=== PATIENT | male | born 1985 | race Caucasian/White ===

== ENCOUNTER 2017-09-16 08:28 | Day surgery (SDC) | END 2017-09-16 13:10 | disposition home or self-care (01) ==

== ENCOUNTER 2018-04-27 08:12 | Day surgery (SDC) | payer OTHER ==
[~2018-04-27] VITALS: Ht 160 cm; Wt 90.2 kg
[~2018-04-27 08:12] MED LIST: IBUPROFEN; OMEPRAZOLE
[2018-04-27] MEDS ORDERED: NORCO (09:21)
[2018-04-27] MEDS ORDERED: DEPRESSION MED (09:21)
[2018-04-27] MEDS ORDERED: TYLENOL (09:21)
--- NOTE | 2018-04-27 09:29 | PREAC ---
Date/Time of Note Date/Time of Note DATE: 04/27/18 TIME: 09:26 Anesthesia Eval and Record Evaluation Time Pre-Procedure Interview DATE: 04/27/18 TIME: 09:26 Age 32 Sex male NPO: 8 hrs Preoperative diagnosis Rectal bleeding Planned procedure Colonoscopy Past Medical History Past Medical History: Includes Cardio: HTN, Dyslipidemia Pulm: Sleep Apnea GI: Morbid obesity Surgery & Anesthesia Issues No known issue Meds Anticoagulation: Yes Beta Luis Manuel within 24 hr: No Reason Beta Luis Manuel not given: Pt. not on B-Luis Manuel Reported Medications [[place]] No Conflict Check 04/27/18 [Depression Med] No Conflict Check 04/27/18 [Tylenol] No Conflict Check 04/27/18 [Ibuprofen] No Conflict Check 09/16/17 Discontinued Reported Medications [Omeprazole] No Conflict Check 09/16/17 Meds reviewed: Yes Allergies Coded Allergies: No Known Allergy (Unverified , 04/27/18) Allergies Reviewed: Yes Labs/Studies Labs Reviewed: Reviewed by anesthesiologist test: N/A Studies: ECG Pre-procedure Exam Last vitals BP:128/67, pulse:78, spo2:100%, T:98,8 Airway: Adequate mouth opening, Adequate thyromental dist Mallampati: Mallampati III Teeth: Normal Lung: Normal Heart: Normal ASA Physical Status ASA physical status: 3 Emergency: None Planned Anesthetic General/MAC: MAC Pre-operative Attestations Prior to commencing anesthesia and surgery, the patient was re-evaluated, there was verification of: *The patient's identity *The results of appropriate recent lab work and preoperative vital signs *The above evaluation not changing prior to induction *Anesthetic plan, risk benefits, alternative and complications discussed with patient/family; questions answered; patient/family understands, accepts and wishes to proceed. ABHI BOOTH MD Apr 27, 2018 09:29
[2018-04-27] MEDS ORDERED: PROPOFOL 60 ML ONE (09:30)
[2018-04-27] MEDS ORDERED: LIDOCAINE 2% (SDV) 5 ML INJ ONE (09:30)
[2018-04-27 09:41] VITALS: BP 121/81; PULSE 96; RESP 20
[2018-04-27 09:44] VITALS: Ht 160 cm; Wt 90.2 kg
--- NOTE | 2018-04-27 10:09 | PAC ---
Date/Time of Note Date/Time of Note DATE: 04/27/18 TIME: 10:09 Post-Anesthesia Notes Post-Anesthesia Note Last documented vital signs Vital Signs Date Temp Pulse Resp B/P (MAP) Pulse Ox O2 O2 Flow FiO2 Time Delivery Rate 04/27/18 98.5 96 20 121/81 97 Room Air 09:41 (94) Activity: WNL Respiratory function: WNL Cardiovascular function: WNL Mental status: Baseline Pain reasonably controlled: Yes Hydration appropriate: Yes Nausea/Vomiting absent: Yes Comments BP:136/67, pulse:78, spo2:100%, T:98,8 ABHI BOOTH MD Apr 27, 2018 10:09
[2018-04-27 10:30] VITALS: BP 132/80; PULSE 90; RESP 18
[2018-04-27] MEDS ORDERED: MEPERIDINE 25 MG INJ IV PRN (10:30)
[2018-04-27] MEDS ORDERED: ONDANSETRON 4 MG INJ IV PRN (10:30)
[2018-04-27] MEDS ORDERED: DIPHENHYDRAMINE 50 MG INJ IV PRN (10:30)
[2018-04-27] MEDS ORDERED: FENTAnyl 50 MCG/ML VIAL IV PRN (10:30)
== END 2018-04-27 14:49 | disposition home or self-care (01) ==
LOC: GIL 08:12
PROVIDERS: ATTEND Internal Medicine Gastroenterology
DX: K92.1 Melena (principal); K64.8 Other hemorrhoids
CPT/HCPCS: 45378; Z7610

== ENCOUNTER 2018-06-26 21:58 | Emergency (ER) | payer OTHER ==
[~2018-06-26] VITALS: Ht 160 cm; Wt 89.0 kg
[~2018-06-26 21:58] MED LIST changes: +DEPRESSION MED; +NORCO; -OMEPRAZOLE; +TYLENOL
[2018-06-26 22:03] VITALS: Ht 160 cm; Wt 89.0 kg
[2018-06-26] MEDS ORDERED: CEFEPIME 2GM/50 ML (PMX) 50 ML IVPB STA (22:05)
[2018-06-26] MEDS ORDERED: VANCOMYCIN 1 GM (PMX) 250 ML IVPB ONE (22:30)
[2018-06-26] MEDS ORDERED: SOD CHLORIDE 0.9% IV ONE (22:30)
[2018-06-26] MEDS ORDERED: KETOROLAC 30 MG INJ IV STA (23:00)
[2018-06-26] MEDS ORDERED: ACETAMINOPHEN 500 MG TAB PO STA (23:00)
[2018-06-27] MEDS ORDERED: MED4DP PO (00:45)
[2018-06-27] MEDS ORDERED: ALBU18HF INHALATION (00:45)
[2018-06-27] MEDS ORDERED: IBUP-1542 PO (00:45)
--- NOTE | 2018-06-27 00:51 | ERD ---
ER Documentation Chief Complaint Chief Complaint [id number]; HEADACHE WITH COUGH AND DIZZINESS X1DAY HPI This is a 32-year-old male comes in with points of headache cough and body aches for the past 2 days getting progressively worse. He was brought in by rescue and sent to triage as there were no rooms available. In triage she flat for sepsis. Code sepsis was called immediately. Sepsis protocol was initiated with antibiotics and fluids. Patient states that his been having these body aches fevers and chills for 2 days. No sick contacts. No other current issues ROS All systems reviewed and are negative except as per history of present illness. Medications Home Meds Active Scripts Albuterol Sulfate* (Ventolin HFA*) 18 Gm Hfa.aer.ad, 2 PUFF INHALATION Q4H, #1 INHALER Prov:YUSUF SHEN 06/27/18 Ibuprofen* (Motrin*) 600 Mg Tab, 600 MG PO Q6H PRN for PAIN AND OR ELEVATED TEMP, #30 TAB Prov:YUSUF SHEN 06/27/18 Methylprednisolone* (Medrol* DOSE PACK) 4 Mg/Dose-Pack Tab.ds.pk, 4 MG PO . DIRECTED for 7 Days, PACKET Prov:YUSUF SHEN Makayla. 06/27/18 Reported Medications [[place]] No Conflict Check 04/27/18 [Depression Med] No Conflict Check 04/27/18 [Tylenol] No Conflict Check 04/27/18 [Ibuprofen] No Conflict Check 09/16/17 Allergies Allergies: Coded Allergies: No Known Allergy (Unverified , 04/27/18) PMhx/Soc History of Surgery: No Anesthesia Reaction: No Hx Neurological Disorder: No Hx Respiratory Disorders: Yes (COUGHING,SLEEP APNEA) Hx Cardiac Disorders: Yes (HIGH BLOOD PRESSURE) Hx Psychiatric Problems: Yes (DEPRESSION) Hx Miscellaneous Medical Probl: No Hx Alcohol Use: No Hx Substance Use: No Hx Tobacco Use: No Physical Exam Vitals Vital Signs Date Temp Pulse Resp B/P (MAP) Pulse Ox O2 O2 Flow FiO2 Time Delivery Rate 06/26/18 99.5 23:54 06/26/18 102.8 96 20 123/89 96 Room Air 23:02 (100) 06/26/18 103.5 128 18 134/82 96 22:03 (99) Physical Exam Const: No acute distress Head: Atraumatic Eyes: Normal Conjunctiva ENT: Normal External Ears, Nose and Mouth. Neck: Full range of motion. No meningismus. Resp: Clear to auscultation bilaterally Cardio: Regular rate and rhythm, no murmurs Abd: Soft, non tender, non distended. Normal bowel sounds Skin: No petechiae or rashes Back: No midline or flank tenderness Ext: No cyanosis, or edema Neur: Awake and alert Psych: Normal Mood and Affect Result Diagram: 06/26/18222206/26/182222 Results 24 hrs Laboratory Tests Test 06/26/18 22:15 06/26/18 22:23 06/26/18 22:30 Urine Color YELLOW Urine Clarity CLEAR Urine pH 5.0 Urine Specific [place] 1.020 Urine Ketones NEGATIVE mg/dL Urine Nitrite NEGATIVE mg/dL Urine Bilirubin NEGATIVE mg/dL Urine Urobilinogen NEGATIVE mg/dL Urine Leukocyte Esterase NEGATIVE Hermes/ul Urine Microscopic RBC 3 /HPF Urine Microscopic WBC 3 /HPF Urine Calcium Oxalate Crystals FEW /HPF Urine Bacteria FEW /HPF Urine Hemoglobin 1+ mg/dL Urine Glucose NEGATIVE mg/dL Urine Total Protein 2+ mg/dl White Blood Count 8.9 10^3/ul Red Blood Count 5.86 10^6/ul Hemoglobin 16.5 g/dl Hematocrit 48.7 % Mean Corpuscular Volume 83.1 fl Mean Corpuscular Hemoglobin 28.2 pg Mean Corpuscular 33.9 g/dl Hemoglobin Concent Red Cell Distribution Width 12.8 % Platelet Count 233 10^3/UL Mean Platelet Volume 9.2 fl Immature Granulocytes % 0.500 % Neutrophils % 73.6 % Lymphocytes % 14.9 % Monocytes % 9.7 % Eosinophils % 0.3 % Basophils % 1.0 % Nucleated Red Blood Cells % 0.0 /100WBC Immature Granulocytes # 0.040 10^3/ul Neutrophils # 6.5 10^3/ul Lymphocytes # 1.3 10^3/ul Monocytes # 0.9 10^3/ul Eosinophils # 0.0 10^3/ul Basophils # 0.1 10^3/ul Nucleated Red Blood Cells # 0.0 10^3/ul Prothrombin Time 13.2 Sec Prothrombin Time Ratio 1.0 INR International 0.99 Normalized Ratio Activated Partial Thromboplast 27.4 Sec Time Sodium Level 140 mmol/L Potassium Level 4.0 mmol/L Chloride Level 98 mmol/L Carbon Dioxide Level 27 mmol/L Anion Gap 15 Blood Urea Nitrogen 16 mg/dl Creatinine 1.24 mg/dl Est Glomerular Filtrat > 60 mL/min Rate mL/min Glucose Level 135 mg/dl Calcium Level 10.1 mg/dl Total Bilirubin 0.4 mg/dl Direct Bilirubin 0.00 mg/dl Indirect Bilirubin 0.4 mg/dl Aspartate Amino 57 IU/L Transf (AST/SGOT) Alanine 104 IU/L Aminotransferase (ALT/SGPT) Alkaline Phosphatase 84 IU/L Troponin I < 0.012 ng/ml Total Protein 8.0 g/dl Albumin 5.0 g/dl Globulin 3.00 g/dl Albumin/Globulin Ratio 1.66 POC Venous Lactate 2.0 mmol/L Current Medications Medications Dose Sig/Cierra Start Time Status Last (Trade) Ordered Route PRN Stop Time Admin Dose Reason Admin Cefepime HCl 50 ml @ ONCE STAT 06/26/18 DC 06/26/18 100 mls/hr IVPB 22:05 22:47 06/26/18 22:34 Vancomycin 250 ml @ ONCE ONCE 06/26/18 DC 06/26/18 HCl 125 mls/hr IVPB 22:30 23:28 06/27/18 00:29 Sodium 2,670 ml @ BOLUS X1 06/26/18 DC 06/26/18 Chloride 2,670 mls/hr ONCE IV 22:30 22:37 06/26/18 23:29 Ketorolac 30 mg ONCE STAT 06/26/18 DC 06/26/18 Tromethamine IV 23:00 23:53 (Toradol) 06/26/18 23:01 1,000 mg ONCE STAT 06/26/18 DC 06/26/18 Acetaminophen PO 23:00 23:54 (Tylenol 06/26/18 23:01 Tab) Procedures/MDM Emergency department course: Patient seen about by triage was placed in bed for MD evaluation. Code sepsis called from triage. Fluids and septic protocol started. Code sepsis canceled. Patient given Toradol for body aches. Given Tylenol for fever. Serial examination was stable and showed global improvement Diagnostic data: Lactic acid 2.0 before fluids EKG: Rate/Rhythm: Regular rhythm, tachycardic rate QRS, ST, T-waves: [No changes consistent w/ acute ischemia] Impression: Sinus tachycardia Chest X-ray 1V Interpreted by me: Soft Tissue: No acute abnormalities Bones: No acute abnormalities Mediastinum/Cardiac Silhouette/Lungs: [No acute abnormalities] Medical decision making: This very pleasant 32-year-old male comes in with a history of viral syndrome. At this point is been ruled out for sepsis and is stable for trial of outpatient management as he feels better. Patient be discharged home Medrol Dosepak, Motrin, albuterol. He is to follow-up with his primary care physician. Return for worsening symptoms. Otherwise to follow-up with PCP tomorrow Departure Diagnosis: Primary Impression: Viral syndrome Condition: Fair Patient Instructions: Viral Syndrome (Adult) YUSUF SHEN Jun 27, 2018 00:51
[2018-06-27 00:53] VITALS: BP 133/76; PULSE 86; RESP 16
== END 2018-06-27 01:23 | disposition home or self-care (01) ==
LOC: E/R 21:58
DX: B34.9 Viral infection, unspecified (principal); R50.9 Fever, unspecified
CPT/HCPCS: 36415; 71045; 80053; 81001; 83605; 84484; 85025; 85610; 85730; 87040; 87086; 87400; 93005; 96365; 96375; J0692; J1885; J3370; J7030; Z7502; Z7610

== ENCOUNTER 2018-07-18 19:33 | Emergency (ER) | payer OTHER ==
[~2018-07-18] VITALS: Ht 167.6 cm; Wt 89.8 kg
[~2018-07-18 19:33] MED LIST changes: +ALBU18HF INHALATION; +IBUP-1542 PO; +MED4DP PO
[2018-07-18 19:39] VITALS: Ht 167.6 cm; Wt 89.8 kg
[2018-07-18] MEDS ORDERED: KETOROLAC 30 MG INJ IV STA (22:09)
[2018-07-18] MEDS ORDERED: ONDANSETRON 4 MG INJ IV STA (22:09)
--- NOTE | 2018-07-18 22:23 | ERD ---
ER Documentation Chief Complaint Chief Complaint LQ abd pain since yesterday. +vomiting. hx kidney stones HPI Patient is a 32-year-old male brought in by parents with a past medical history of hypertension, sleep apnea, nephrolithiasis, who presents the ER for concerns of left-sided abdominal pain that started yesterday. Patient describes the pain to be localized to his flank region and radiating to his left lower quadrant. Patient states the pain comes and goes. He describes the pain to be colicky. Patient does admit to one episode of nonbloody, nonbilious vomiting. Patient does admit to dysuria however he denies any gross hematuria. Patient denies any loose stools, diarrhea or rectal bleeding. Patient denies any fevers or chills. Patient denies any recent travel. No recent antibiotic use. No sick contacts. Patient denies any chest pain, shortness of breath, upper abdominal pain. ROS All systems reviewed and are negative except as per history of present illness. Medications Home Meds Active Scripts Albuterol Sulfate* (Ventolin HFA*) 18 Gm Hfa.aer.ad, 2 PUFF INHALATION Q4H, #1 INHALER Prov:YUSUF SHEN 06/27/18 Ibuprofen* (Motrin*) 600 Mg Tab, 600 MG PO Q6H PRN for PAIN AND OR ELEVATED TEMP, #30 TAB Prov:YUSUF SHEN 06/27/18 Methylprednisolone* (Medrol* DOSE PACK) 4 Mg/Dose-Pack Tab.ds.pk, 4 MG PO . DIRECTED for 7 Days, PACKET Prov:YUSUF SHEN 06/27/18 Reported Medications [[place]] No Conflict Check 04/27/18 [Depression Med] No Conflict Check 04/27/18 [Tylenol] No Conflict Check 04/27/18 [Ibuprofen] No Conflict Check 09/16/17 Allergies Allergies: Coded Allergies: No Known Allergy (Unverified , 07/18/18) PMhx/Soc History of Surgery: No Anesthesia Reaction: No Hx Neurological Disorder: No Hx Respiratory Disorders: Yes (COUGHING,SLEEP APNEA) Hx Cardiac Disorders: Yes (HIGH BLOOD PRESSURE) Hx Psychiatric Problems: Yes (DEPRESSION) Hx Miscellaneous Medical Probl: No Hx Alcohol Use: No Hx Substance Use: No Hx Tobacco Use: No Smoking Status: Never smoker FmHx Family History: No diabetes Physical Exam Vitals Vital Signs Date Temp Pulse Resp B/P (MAP) Pulse Ox O2 O2 Flow FiO2 Time Delivery Rate 07/18/18 99.0 77 20 133/91 96 19:39 (105) Physical Exam GENERAL: Well-developed, well-nourished male Appears in no acute distress. HEAD: Normocephalic, atraumatic. EYES: Pupils are equally reactive bilaterally. EOMs grossly intact. No conjunctival erythema. ENT: Moist mucous membranes. No uvula deviation. No kissing tonsils. NECK: Supple. No meningismus. Normal range of motion of the neck. LUNG: Clear to auscultation bilaterally. No rhonchi, wheezing, rales or coarse breath sounds. HEART: Regular rate and rhythm. No murmurs, rubs or gallops. ABDOMEN:Soft, and nondistended. Minimally tender to palpation in the left lower quadrant. Positive bowel sounds in all four quadrants. No rebound tenderness, no guarding. (-) McBurney's point tenderness. + Left CVA tenderness. BACK: No midline tenderness. EXTREMITIES: Equal pulses bilaterally. No peripheral clubbing, cyanosis or venice a. No unilateral leg swelling. NEUROLOGIC: Alert and oriented. Moving all four extremities without any difficulty. Normal speech. Steady gait. SKIN: Normal color. Warm and dry. No rashes or lesions. Result Diagram: 07/18/18222707/18/182227 Results 24 hrs Laboratory Tests Test 07/18/18 22:15 07/18/18 22:22 07/18/18 22:28 Urine Color YELLOW Urine Clarity SLIGHTLY CLOUDY Urine pH 5.0 Urine Specific [place] 1.026 Urine Ketones NEGATIVE mg/dL Urine Nitrite NEGATIVE mg/dL Urine Bilirubin NEGATIVE mg/dL Urine Urobilinogen NEGATIVE mg/dL Urine Leukocyte Esterase TRACE Hermes/ul Urine Microscopic RBC 172 /HPF Urine Microscopic WBC 15 /HPF Urine Calcium Oxalate Crystals FEW /HPF Urine Mucus FEW /HPF Urine Hemoglobin 3+ mg/dL Urine Glucose NEGATIVE mg/dL Urine Total Protein 2+ mg/dl POC Beta HCG, Qualitative NEGATIVE White Blood Count 9.3 10^3/ul Red Blood Count 5.39 10^6/ul Hemoglobin 15.0 g/dl Hematocrit 45.2 % Mean Corpuscular Volume 83.9 fl Mean Corpuscular Hemoglobin 27.8 pg Mean Corpuscular 33.2 g/dl Hemoglobin Concent Red Cell Distribution Width 12.8 % Platelet Count 247 10^3/UL Mean Platelet Volume 9.7 fl Immature Granulocytes % 0.400 % Neutrophils % 46.5 % Lymphocytes % 40.8 % Monocytes % 8.6 % Eosinophils % 2.6 % Basophils % 1.1 % Nucleated Red Blood Cells % 0.0 /100WBC Immature Granulocytes # 0.040 10^3/ul Neutrophils # 4.3 10^3/ul Lymphocytes # 3.8 10^3/ul Monocytes # 0.8 10^3/ul Eosinophils # 0.2 10^3/ul Basophils # 0.1 10^3/ul Nucleated Red Blood Cells # 0.0 10^3/ul Sodium Level 145 mmol/L Potassium Level 4.3 mmol/L Chloride Level 101 mmol/L Carbon Dioxide Level 32 mmol/L Anion Gap 12 Blood Urea Nitrogen 18 mg/dl Creatinine 1.24 mg/dl Est Glomerular Filtrat > 60 mL/min Rate mL/min Glucose Level 90 mg/dl Calcium Level 10.3 mg/dl Total Bilirubin 0.2 mg/dl Direct Bilirubin 0.00 mg/dl Indirect Bilirubin 0.2 mg/dl Aspartate Amino Transf (AST/SGOT) 49 IU/L Alanine 94 IU/L Aminotransferase (ALT/SGPT) Alkaline Phosphatase 70 IU/L Total Protein 7.4 g/dl Albumin 4.6 g/dl Globulin 2.80 g/dl Albumin/Globulin Ratio 1.64 Lipase 136 U/L Current Medications Medications Dose Sig/Cierra Start Time Status Last (Trade) Ordered Route PRN Stop Time Admin Dose Reason Admin Ondansetron 4 mg ONCE STAT 07/18/18 DC 07/18/18 HCl (Zofran IV 22:09 07/18/18 22:34 Inj) 22:11 Ketorolac 30 mg ONCE STAT 07/18/18 DC 07/18/18 Tromethamine IV 22:09 07/18/18 22:34 (Toradol) 22:11 Sodium 1,000 ml @ Q1H ONCE 07/19/18 Chloride 1,000 mls/hr IV 00:30 07/19/18 01:29 Procedures/MDM ED COURSE: The patient was stable throughout ED course. I kept the patient and/or family informed of laboratory and diagnostic imaging results throughout the ED course. DIAGNOSTIC IMAGING: Read by radiologist. Patient: MARY JO LENZ : 1985 Age: 32 Sex: M MR #: [id number] DOS: 07/18/182208 Ordering MD: REKHA KRAMER PA-C Location: [facility] Room/Bed: PROCEDURE: CT ABDOMEN AND PELVIS WITHOUT CONTRAST CLINICAL INDICATION: 32 years of age, male . Abdominal pain. TECHNIQUE: CT of the abdomen and pelvis was performed without intravenous c ontrast. Oral contrast was not administered prior to the examination. Coronal and sagittal reformatted images were obtained from the axial source images. Images were reviewed on a high-resolution PACS workstation. DICOM images are available. Dose information: Based on a 32 cm phantom, the estimated radiation dose (CTDIvol mGy) for each series in this exam is 15. The estimated cumulative dose (DLP mGy-cm) is 1004. One or more of the following dose reduction techniques were used: - Automated exposure control. - Adjustment of the mA and/or kV according to patient size. - Use of iterative reconstruction technique. COMPARISON: None available. FINDINGS: In the absence of intravenous contrast, the study constitutes a limited assessment of the solid organs, bowel and vessels. LUNG BASES: Normal noncontrast appearance. ABDOMEN/PELVIS: Liver: Diffusely hypodense in keeping with mild steatosis with focal sparing centrally. Mildly enlarged and liver measures 19.5 cm in length. Smooth surface contour. Gallbladder: Normal noncontrast appearance. Bile ducts: No intrahepatic or extrahepatic biliary duct dilatation. Spleen: Normal noncontrast appearance. Pancreas: Normal noncontrast appearance. Adrenal glands: Normal noncontrast appearance. Kidneys and ureters: There is a 1 x 1.5 cm obstructing calculus in the left renal pelvis with mild left hydronephrosis and edema in the fat surrounding the renal pelvis and proximal ureter. No other calculi are identified. Both kidneys are normal size. Negative for right hydronephrosis. Aorta and IVC: Normal noncontrast appearance. Lymph nodes: Normal noncontrast appearance. Gastrointestinal tract: Normal noncontrast appearance. Appendix: Normal Bladder: Normal noncontrast appearance. Pelvic Organs: Prostate gland and seminal vesicles are unremarkable for age. Peritoneal cavity: No free fluid or free intraperitoneal air. Abdominal wall: Normal noncontrast appearance. MUSCULOSKELETAL: Bones: Thoracolumbar scoliosis with mild degenerative changes in the lumbar spine where there is a curvature convex left. No suspicious bone lesions. IMPRESSION: 1. 1 x 1.5 cm partially obstructing calculus in the left renal pelvis with mild left hydronephrosis. There is edema in the peripelvic and periureteral fat. Recommend clinical correlation for evidence of a urinary tract infection and possible pyelitis. 2. Mild hepatic steatosis and mild hepatomegaly. Recommend correlation with liver tests to evaluate for potential steatohepatitis. 3. Please note that in the absence of intravenous contrast the study does not evaluate the patency of the vasculature. RPTAT: HCTS Physician Katelyn Date Time Electronically viewed and signed by Ethel Dawn Physician on 07/18/2018 23:38 CS/ CC: REKHA KRAMER PA-C [id number] PROCEDURES: None. MEDICATIONS GIVEN: IV fluids, Zofran, Toradol Patient tolerated medication well with no adverse reactions. Patient reported improvement in pain. MEDICAL DECISION MAKING: This is a 32-year-old male with past medical history of hypertension, sleep apnea, nephrolithiasis, who presents to the ER for concerns of left-sided flank pain which started yesterday. Vital signs were reviewed. Patient was afebrile. Patient was not hypoxic. IV line was established. Blood work was obtained. CBC showed no evidence of systemic infection or severe anemia. CMP showed no evidence of electrolyte abnormalities, severe acidosis, alkalosis, renal failure. AST was noted to be 49, ALT of 94. Lipase showed no evidence of acute pancreatitis. UA showed trace leukocyte esterase, positive WBCs and RBCs. Few calcium oxalate crystals were noted. CT abdomen and pelvis showed 1. 1 x 1.5 cm partially obstructing calculus in the left renal pelvis with mild left hydronephrosis. There is edema in the peripelvic and periureteral fat. Recommend clinical correlation for evidence of a urinary tract infection and possible pyelitis. 2. Mild hepatic steatosis and mild hepatomegaly. Recommend correlation with liver tests to evaluate for potential steatohepatitis. 3. Please note that in the absence of intravenous contrast the study does not evaluate the patency of the vasculature. At this time, patient's presentation is most consistent with nephrolithiasis. Patient did report improvement in pain prior to discharge. Low suspicion for pyelonephritis, appendicitis, diverticulitis, constipation, urethritis, prostati tis, epididymitis, testicular torsion, acute renal injury. Patient was advised to follow-up with urologist. Referral information provided. PRESCRIPTIONS: Ibuprofen, Zofran, tamsulosin DISCHARGE: At this time, patient is stable for discharge and outpatient management. I have instructed the patient to follow-up with his/her primary care physician in 1-2 days. If symptoms persist, patient may need to see a specialist for further examinations and testing. I have instructed the patient to promptly return to the ER at any time for any new or worsening symptoms including increased increased pain, fever, nausea, vomiting, urinary changes or weakness. The patient and/or family expressed understanding of and agreement with this plan. All questions were answered. Home care instructions were provided. Disclaimer: Inadvertent spelling and grammatical errors are likely due to EHR/dictation software use and do not reflect on the overall quality of patient care. Also, please note that the electronic time recorded on this note does not necessarily reflect the actual time of the patient encounter. Departure Diagnosis: Primary Impression: Nephrolithiasis Additional Impression: Urinary tract infection Urinary tract infection type: site unspecified Hematuria presence: with hematuria Qualified Codes: N39.0 - Urinary tract infection, site not specified; R31.9 - Hematuria, unspecified Condition: Fair Patient Instructions: Kidney Stone W/ Colic Referrals: ANTHONY GUZMAN MD [facility] YOU HAVE RECEIVED A MEDICAL SCREENING EXAM AND THE RESULTS INDICATE THAT YOU DO NOT HAVE A CONDITION THAT REQUIRES URGENT TREATMENT IN THE EMERGENCY DEPARTMENT. FURTHER EVALUATION AND TREATMENT OF YOUR CONDITION CAN WAIT UNTIL YOU ARE SEEN IN YOUR DOCTORS OFFICE WITHIN THE NEXT 1-2 DAYS. IT IS YOUR RESPONSIBILITY TO MAKE AN APPOINTMENT FOR FOLOW-UP CARE. IF YOU HAVE A PRIMARY DOCTOR --you should call your primary doctor and schedule an appointment IF YOU DO NOT HAVE A PRIMARY DOCTOR YOU CAN CALL OUR PHYSICIAN REFERRAL HOTLINE AT IF YOU CAN NOT AFFORD TO SEE A PHYSICIAN YOU CAN CHOSE FROM THE FOLLOWING [facility] [address] [facility] [facility] [address] [facility] [address] [facility] [address] [facility] [address] [facility]. [facility]. [address] [facility]. [facility] YOU HAVE RECEIVED A MEDICAL SCREENING EXAM AND THE RESULTS INDICATE THAT YOU DO NOT HAVE A CONDITION THAT REQUIRES URGENT TREATMENT IN THE EMERGENCY DEPARTMENT. FURTHER EVALUATION AND TREATMENT OF YOUR CONDITION CAN WAIT UNTIL YOU ARE SEEN IN YOUR DOCTORS OFFICE WITHIN THE NEXT 1-2 DAYS. IT IS YOUR RESPONSIBILITY TO MAKE AN APPOINTMENT FOR FOLOW-UP CARE. IF YOU HAVE A PRIMARY DOCTOR --you should call your primary doctor and schedule and appointment IF YOU DO NOT HAVE A PRIMARY DOCTOR YOU CAN CALL OUR PHYSICIAN REFERRAL HOTLINE AT . IF YOU CAN NOT AFFORD TO SEE A PHYSICIAN YOU CAN CHOSE FROM THE FOLLOWING [facility] INSTITUTIONS: [facility] [address] [place] [address] [facility] [address] [place] [address] [facility] [address] [place] [address] Additional Instructions: Call your primary care doctor TOMORROW for an appointment during the next 1-2 days.See the doctor sooner or return here if your condition worsens before your appointment time. REKHA KRAMER PA-C Jul 18, 2018 22:23
[2018-07-19] MEDS ORDERED: IBUP-1542 PO (00:18)
[2018-07-19] MEDS ORDERED: TAMS-14 PO (00:19)
[2018-07-19] MEDS ORDERED: ONDA4TAB14 PO (00:19)
[2018-07-19] MEDS ORDERED: SOD CHLORIDE 0.9% 1,000 ML IV ONE (00:30)
[2018-07-19 01:05] VITALS: BP 125/77; PULSE 84; RESP 18
== END 2018-07-19 01:15 | disposition home or self-care (01) ==
LOC: FTE 19:33
DX: N20.0 Calculus of kidney (principal); N39.0 Urinary tract infection, site not specified; I10 Essential (primary) hypertension
CPT/HCPCS: 36415; 74176; 80053; 81001; 81025; 83690; 85025; 87086; 96361; 96374; 96375; J1885; J2405; J7030; Z7502

== ENCOUNTER 2018-08-13 20:46 | Emergency (ER) | payer OTHER ==
[~2018-08-13] VITALS: Wt 88.0 kg
[~2018-08-13 20:46] MED LIST changes: +ONDA4TAB14 PO; +TAMS-14 PO
[2018-08-13 21:06] VITALS: BP 130/83; PULSE 89; RESP 18
[2018-08-13] MEDS ORDERED: IBUP-1561 PO (23:18)
[2018-08-13] MEDS ORDERED: ACET-141 PO (23:18)
[2018-08-13] MEDS ORDERED: HYDR-3980 PO (23:18)
[2018-08-13] MEDS ORDERED: TAMS-14 PO (23:23)
--- NOTE | 2018-08-13 23:26 | ERD ---
ER Documentation Chief Complaint Chief Complaint left abdominal pain x 1 day HPI 32-year-old male presents for left groin pain x1 day. He had a left ureter stent placed at [facility] for kidney stones about 5 days ago.he was discharged with some [place], Augmentin. He states that the pain was initially at the left flank and now is at the left groin. He has been taking the [place] with mild relief. Denies fevers or chills. Denies chest pain or shortness of breath. No nausea or vomiting noted. He is eating and drinking normally. No other modifying factors noted. No other treatments tried at home. ROS All systems reviewed and are negative except as per history of present illness. Medications Home Meds Active Scripts Tamsulosin Hcl* (Flomax*) 0.4 Mg Cap.er.24h, 0.4 MG PO DAILY for kidney stone for 7 Days, #7 CAP Prov:LUZ ESCALANTE DO 08/13/18 Acetaminophen* (Acetaminophen*) 500 MG Extra Strength Tablet, 500 MG PO Q4H PRN for PAIN AND OR ELEVATED TEMP, #30 TAB Prov:LUZ ESCALANTE DO 08/13/18 Ibuprofen* (Motrin*) 400 Mg Tab, 400 MG PO Q6, #30 TAB Prov:LUZ ESCALANTE DO 08/13/18 Hydrocodone/Acetaminophen ([place] 10-325 Tablet) 1 Each Tablet, 1 TAB PO Q6H PRN for PAIN, #5 TAB Prov:BORISLUZ 08/13/18 Tamsulosin Hcl* (Flomax*) 0.4 Mg Cap.er.24h, 0.4 MG PO QPM, #10 CAP Prov:REKHA KARMER PA-C 07/19/18 Ondansetron (Ondansetron Odt) 4 Mg Tab.rapdis, 4 MG PO Q6H PRN for NAUSEA AND/OR VOMITING, #10 TAB Prov:REKHA KRAMER PA-C 07/19/18 Ibuprofen* (Motrin*) 600 Mg Tab, 600 MG PO Q6, #30 TAB Prov:REKHA KRAMER PA-C 07/19/18 Albuterol Sulfate* (Ventolin HFA*) 18 Gm Hfa.aer.ad, 2 PUFF INHALATION Q4H, #1 INHALER Prov:YUSUF SHEN 06/27/18 Ibuprofen* (Motrin*) 600 Mg Tab, 600 MG PO Q6H PRN for PAIN AND OR ELEVATED TEMP, #30 TAB Prov:YUSUF SHEN 06/27/18 Methylprednisolone* (Medrol* DOSE PACK) 4 Mg/Dose-Pack Tab.ds.pk, 4 MG PO . DIRECTED for 7 Days, PACKET Prov:YUSUF SHEN 06/27/18 Reported Medications [[place]] No Conflict Check 04/27/18 [Depression Med] No Conflict Check 04/27/18 [Tylenol] No Conflict Check 04/27/18 [Ibuprofen] No Conflict Check 09/16/17 Allergies Allergies: Coded Allergies: No Known Allergy (Unverified , 07/18/18) PMhx/Soc History of Surgery: No Anesthesia Reaction: No Hx Neurological Disorder: No Hx Respiratory Disorders: Yes (COUGHING,SLEEP APNEA) Hx Cardiac Disorders: Yes (HIGH BLOOD PRESSURE) Hx Psychiatric Problems: Yes (DEPRESSION) Hx Miscellaneous Medical Probl: No Hx Alcohol Use: No Hx Substance Use: No Hx Tobacco Use: No Smoking Status: Never smoker FmHx Family History: No coronary disease Physical Exam Vitals Vital Signs Date Temp Pulse Resp B/P (MAP) Pulse Ox O2 O2 Flow FiO2 Time Delivery Rate 08/13/18 98.8 89 18 130/83 96 21:06 (99) Physical Exam Const: No acute distress Resp: Clear to auscultation bilaterally Cardio: Regular rate and rhythm, no murmurs Abd: Soft, non distended. Normal bowel sounds, there is mild tenderness to palpation over the left lower quadrant, left groin area, no McBurney's point tenderness, no Cash sign, no rebound or guarding noted Skin: No petechiae or rashes Back: No midline or flank tenderness Ext: No cyanosis, or edema Neur: Awake and alert Psych: Normal Mood and Affect Results 24 hrs Laboratory Tests Test 08/13/18 22:44 Urine Color YELLOW Urine Clarity CLOUDY Urine pH 5.0 Urine Specific [place] 1.019 Urine Ketones NEGATIVE mg/dL Urine Nitrite NEGATIVE mg/dL Urine Bilirubin NEGATIVE mg/dL Urine Urobilinogen 1+ mg/dL Urine Leukocyte Esterase 2+ Hermes/ul Urine Microscopic RBC > 182 /HPF Urine Microscopic WBC 85 /HPF Urine Squamous Epithelial Cells FEW /HPF Urine Bacteria FEW /HPF Urine Mucus FEW /HPF Urine Hemoglobin 3+ mg/dL Urine Glucose NEGATIVE mg/dL Urine Total Protein 2+ mg/dl Procedures/MDM Medical Decision Making: Differential diagnosis includes but not limited to acute gastritis, acute gastroenteritis, appendicitis, cholecystitis, pancreatitis, nephrolithiasis Patient appeared well on physical exam. Nontoxic appearing. ED course: UA showed a large amount of RBCs consistent with a kidney stone. Given the patient appeared well, there is low suspicion for sepsis. Patient advised to continue with the Augmentin that he has been prescribed. Patient given prescription for higher dose of [place] short course. Prescription(s): Patient given prescription for supportive medications. Patient advised to follow up with PCP in 1-2 days. Patient also advised to follow with urology. Patient advised to return to ED for new or worsening symptoms. Patient stable on discharge from the ED. The patient has been prescribed [place] during this encounter. The patient has been warned about the use of narcotics. The patient should not drive or operate heavy machinery while taking this medication. The patient was also warned about the addictive properties of narcotic medications. Narcan prescription was NOT provided given the following criteria 1. No more than 5 tablets of [place] 10 mg or 10 tablets of [place] 5 mg were prescribed. 2. Concomitant opiate and benzodiazepine prescriptions were not provided. 3. There is no obvious evidence of prior history of opiate abuse or overdose. Disclaimer: Inadvertent spelling and grammatical errors are likely due to EHR[employer] software use and do not reflect on the overall quality of patient care. Also, please note that the electronic time recorded on this note does not necessarily reflect the actual time of the patient encounter. Departure Diagnosis: Primary Impression: Nephrolithiasis Condition: Fair Patient Instructions: Kidney Stone W/ Colic Referrals: [facility] YOU HAVE RECEIVED A MEDICAL SCREENING EXAM AND THE RESULTS INDICATE THAT YOU DO NOT HAVE A CONDITION THAT REQUIRES URGENT TREATMENT IN THE EMERGENCY DEPARTMENT. FURTHER EVALUATION AND TREATMENT OF YOUR CONDITION CAN WAIT UNTIL YOU ARE SEEN IN YOUR DOCTORS OFFICE WITHIN THE NEXT 1-2 DAYS. IT IS YOUR RESPONSIBILITY TO MAKE AN APPOINTMENT FOR FOLOW-UP CARE. IF YOU HAVE A PRIMARY DOCTOR --you should call your primary doctor and schedule an appointment IF YOU DO NOT HAVE A PRIMARY DOCTOR YOU CAN CALL OUR PHYSICIAN REFERRAL HOTLINE AT IF YOU CAN NOT AFFORD TO SEE A PHYSICIAN YOU CAN CHOSE FROM THE FOLLOWING [facility] [address] [facility] [address] [facility] [address] [facility] [address] [facility]. [facility] [address] [facility] [address] Additional Instructions: Call your primary care doctor TOMORROW for an appointment during the next 1-2 days.See the doctor sooner or return here if your condition worsens before your appointment time. LUZ ESCALANTE DO August 13, 2018 23:26
== END 2018-08-13 23:43 | disposition home or self-care (01) ==
LOC: FTE 20:46
DX: N20.0 Calculus of kidney (principal)
CPT/HCPCS: 81001; Z7502; 99283

== ENCOUNTER 2019-02-09 08:58 | Day surgery (SDC) | payer OTHER ==
[~2019-02-09] VITALS: Ht 160 cm; Wt 91.1 kg
[~2019-02-09 08:58] MED LIST changes: +ACET-141 PO; +HYDR-3980 PO; +IBUP-1561 PO; +OMEGA 3; +OMEPRAZOLE; +[UNRECOGNIZED DRUG - REMARK]
[2019-02-09 10:00] VITALS: Ht 160 cm; Wt 91.1 kg
[2019-02-09] MEDS ORDERED: PROPOFOL 20 ML ONE (10:05)
[2019-02-09 10:23] VITALS: BP 116/65; PULSE 90; RESP 19
[2019-02-09 11:35] VITALS: BP 112/71; PULSE 82; RESP 15
== END 2019-02-09 14:23 | disposition home or self-care (01) ==
LOC: GIL 08:58
PROVIDERS: ATTEND Internal Medicine Gastroenterology
DX: K29.70 Gastritis, unspecified, without bleeding (principal); I10 Essential (primary) hypertension; E11.9 Type 2 diabetes mellitus without complications; E66.9 Obesity, unspecified; Z68.35 Body mass index [BMI] 35.0-35.9, adult
CPT/HCPCS: 43239; 82962; 88305; 88312; Z7610